=== PATIENT | male | born 1985 | race Caucasian/White ===

== ENCOUNTER 2020-01-23 15:41 | Emergency (ER) | payer SELFPAY ==
[~2020-01-23] VITALS: Ht 175.3 cm; Wt 56.7 kg
[2020-01-23] MEDS ORDERED: Prozac20 MG PO (16:28)
[2020-01-23] MEDS ORDERED: CYCL10 PO (16:28)
[2020-01-23 16:50] LABS: BASOPHILS ABSOLUTE AUTO 0.01 K/mm3 (0.00-0.23); BASOPHILS PERCENT AUTO 0 % (0-2); EOSINOPHILS ABSOLUTE AUTO 0.04 K/mm3 (0.00-0.68); EOSINOPHILS PERCENT AUTO 1 % (0-6); Hematocrit 44.8 % (37.0-53.0); Hemoglobin 14.4 g/dL (13.5-17.5); IMMATURE GRAN PERCENT AUTO 0 % (0-1); LYMPHOCYTES ABSOLUTE AUTO 1.54 K/mm3 (0.84-5.20); LYMPHOCYTES PERCENT AUTO 26 % (21-46); MONOCYTES ABSOLUTE AUTO 0.39 K/mm3 (0.16-1.47); MONOCYTES PERCENT AUTO 7 % (4-13); Mean Corpuscular HGB 29.8 pg (26.0-34.0); Mean Corpuscular HGB Conc 32.1 g/dL (31.5-36.5); Mean Corpuscular Volume 93 fL (80-100); Mean Platelet Volume 10.8 fL (9.1-12.4); NEUTROPHILS ABSOLUTE AUTO 3.97 K/mm3 (1.96-9.15); NEUTROPHILS PERCENT AUTO 67 % (41-73); Platelet Count 232 K/mm3 (150-400); RDW Coefficient Variation 12.3 % (11.7-14.2); Red Blood Cell Count 4.83 M/mm3 (4.30-5.90); White Blood Cell Count 5.95 K/mm3 (4.00-11.30)
[2020-01-23 17:24] LABS: Alanine Aminotransfer (ALT/SGP 26 U/L (12-78); Albumin, Blood 4.4 g/dL (3.4-5.0); Albumin/Globulin Ratio 1.2 (0.8-1.8); Alk Phos 63 U/L (50-136); Anion Gap 7 mmol/L (6-16); Aspartate Aminotrans (AST/SGOT 19 U/L (12-37); Bilirubin, Total 0.6 mg/dL (0.1-1.0); Blood Urea Nitrogen 15 mg/dL (8-24); Bun/Creatinine Ratio 18.4 (12.0-20.0); CO2, Blood 25 mmol/L (21-32); Calcium, Blood 9.7 mg/dL (8.5-10.1); Chloride, Blood 111 mmol/L (98-108); Creatinine, Blood 0.81 mg/dL (0.60-1.20); Globulin, Blood 3.6 g/dL (2.2-4.0); Glomerular Filtration Rate >60 (60-); Glucose, Blood 86 mg/dL (70-99); Potassium, Blood 4.1 mmol/L (3.5-5.5); Sodium, Blood 143 mmol/L (136-145); Troponin I <0.015 ng/mL (0.000-0.040)
[2020-01-23 19:42] LABS: Source, Urine Voided
[2020-01-23 19:51] LABS: Appearance, Urine Clear (Clear); Bilirubin, Urine Neg (Neg); Blood, Urine 1+ (Neg); Color, Urine Yellow (P-Yellow); Glucose Qualitative, Urine Neg (Neg); Ketones, Urine 4+ (Neg); Leukocyte Esterase, Urine Neg (Neg); Nitrite, Urine Neg (Neg); Protein, Urine Neg (Neg); Specific Gravity, Urine 1.015 (1.003-1.022); Urobilinogen, Urine NORM (Normal)
[2020-01-23 20:06] LABS: Bacteria Rare /hpf; Squamous Epithelial Cells Rare /hpf (Few); White Blood Cells, Urine 0-2 /hpf (0-5)
== END 2020-01-23 20:15 | disposition home or self-care (01) ==
LOC: ER 15:41
PROVIDERS: Emergency Medicine
DX: R42 Dizziness and giddiness (principal); R53.1 Weakness; R07.9 Chest pain, unspecified; R11.0 Nausea; R19.7 Diarrhea, unspecified; F41.9 Anxiety disorder, unspecified; F32.9 Major depressive disorder, single episode, unspecified; F41.0 Panic disorder [episodic paroxysmal anxiety]; Z79.899 Other long term (current) drug therapy
CPT/HCPCS: 71045; 80053; 81001; 83605; 83690; 84484; 85025; 85379; 93005; 93010; 96360; 96361; 99284-25; J7030

== ENCOUNTER 2020-03-02 12:30 | Emergency (ER) | payer BC ==
[~2020-03-02] VITALS: Ht 177.8 cm; Wt 56.7 kg
[~2020-03-02 12:30] MED LIST: CYCL10 PO; Prozac20 MG PO
[2020-03-02 16:24] LABS: BASOPHILS ABSOLUTE AUTO 0.03 K/mm3 (0.00-0.23); BASOPHILS PERCENT AUTO 1 % (0-2); EOSINOPHILS ABSOLUTE AUTO 0.16 K/mm3 (0.00-0.68); EOSINOPHILS PERCENT AUTO 3 % (0-6); Hematocrit 42.4 % (37.0-53.0); Hemoglobin 13.5 g/dL (13.5-17.5); IMMATURE GRAN ABSOLUTE AUTO 0.01 K/mm3 (0.00-0.10); IMMATURE GRAN PERCENT AUTO 0 % (0-1); LYMPHOCYTES ABSOLUTE AUTO 2.02 K/mm3 (0.84-5.20); LYMPHOCYTES PERCENT AUTO 42 % (21-46); MONOCYTES ABSOLUTE AUTO 0.46 K/mm3 (0.16-1.47); MONOCYTES PERCENT AUTO 10 % (4-13); Mean Corpuscular HGB 29.7 pg (26.0-34.0); Mean Corpuscular HGB Conc 31.8 g/dL (31.5-36.5); Mean Corpuscular Volume 93 fL (80-100); Mean Platelet Volume 10.6 fL (9.1-12.4); NEUTROPHILS PERCENT AUTO 44 % (41-73); Platelet Count 244 K/mm3 (150-400); RDW Coefficient Variation 12.6 % (11.7-14.2); RDW Standard Deviation 43.5 fL (35.1-46.3); Red Blood Cell Count 4.54 M/mm3 (4.30-5.90); White Blood Cell Count 4.78 K/mm3 (4.00-11.30)
[2020-03-02 16:49] LABS: Anion Gap 4 mmol/L (6-16); Blood Urea Nitrogen 13 mg/dL (8-24); Bun/Creatinine Ratio 15.5 (12.0-20.0); CO2, Blood 29 mmol/L (21-32); Chloride, Blood 109 mmol/L (98-108); Creatinine, Blood 0.84 mg/dL (0.60-1.20); Glomerular Filtration Rate >60 (60-); Glucose, Blood 87 mg/dL (70-99); Potassium, Blood 4.1 mmol/L (3.5-5.5); Sodium, Blood 142 mmol/L (136-145)
[2020-03-02] MEDS ORDERED: HYDHCL25 PO (18:21)
== END 2020-03-02 18:31 | disposition home or self-care (01) ==
LOC: ER 12:30
PROVIDERS: Emergency Medicine
DX: R42 Dizziness and giddiness (principal); H53.8 Other visual disturbances; F32.9 Major depressive disorder, single episode, unspecified; F41.9 Anxiety disorder, unspecified; F41.0 Panic disorder [episodic paroxysmal anxiety]; Z79.899 Other long term (current) drug therapy
CPT/HCPCS: 70450; 80048; 85025; 93005; 93010; 99284-25

== ENCOUNTER 2020-06-20 15:33 | Observation (INO) | payer BC ==
[~2020-06-20] VITALS: Ht 175.3 cm; Wt 58.2 kg
[~2020-06-20 15:33] MED LIST changes: -CYCL10 PO; +HYDHCL25 PO
[2020-06-20 16:05] LABS: BASOPHILS ABSOLUTE AUTO 0.02 K/mm3 (0.00-0.23); BASOPHILS PERCENT AUTO 0 % (0-2); EOSINOPHILS ABSOLUTE AUTO 0.18 K/mm3 (0.00-0.68); EOSINOPHILS PERCENT AUTO 4 % (0-6); Hematocrit 43.7 % (37.0-53.0); Hemoglobin 14.1 g/dL (13.5-17.5); IMMATURE GRAN ABSOLUTE AUTO 0.01 K/mm3 (0.00-0.10); IMMATURE GRAN PERCENT AUTO 0 % (0-1); LYMPHOCYTES ABSOLUTE AUTO 2.22 K/mm3 (0.84-5.20); LYMPHOCYTES PERCENT AUTO 45 % (21-46); MONOCYTES ABSOLUTE AUTO 0.44 K/mm3 (0.16-1.47); MONOCYTES PERCENT AUTO 9 % (4-13); Mean Corpuscular HGB 29.5 pg (26.0-34.0); Mean Corpuscular HGB Conc 32.3 g/dL (31.5-36.5); Mean Corpuscular Volume 91 fL (80-100); Mean Platelet Volume 10.9 fL (9.1-12.4); NEUTROPHILS ABSOLUTE AUTO 2.08 K/mm3 (1.96-9.15); NEUTROPHILS PERCENT AUTO 42 % (41-73); Platelet Count 207 K/mm3 (150-400); RDW Coefficient Variation 12.6 % (11.7-14.2); RDW Standard Deviation 42.3 fL (35.1-46.3); Red Blood Cell Count 4.78 M/mm3 (4.30-5.90); White Blood Cell Count 4.95 K/mm3 (4.00-11.30)
[2020-06-20 16:27] LABS: Alanine Aminotransfer (ALT/SGP 44 U/L (12-78); Albumin, Blood 4.4 g/dL (3.4-5.0); Albumin/Globulin Ratio 1.2 (0.8-1.8); Alk Phos 66 U/L (50-136); Anion Gap 3 mmol/L (6-16); Aspartate Aminotrans (AST/SGOT 25 U/L (12-37); Bilirubin, Total 0.5 mg/dL (0.1-1.0); Blood Urea Nitrogen 12 mg/dL (8-24); Bun/Creatinine Ratio 14.9 (12.0-20.0); CO2, Blood 30 mmol/L (21-32); Calcium, Blood 9.7 mg/dL (8.5-10.1); Chloride, Blood 108 mmol/L (98-108); Creatinine, Blood 0.81 mg/dL (0.60-1.20); Globulin, Blood 3.6 g/dL (2.2-4.0); Glomerular Filtration Rate >60 (60-); Glucose, Blood 83 mg/dL (70-99); Potassium, Blood 4.3 mmol/L (3.5-5.5); Sodium, Blood 141 mmol/L (136-145)
[2020-06-20] MEDS ORDERED: VENL37.5ER PO (17:24)
[2020-06-20] MEDS ORDERED: IMITREX100 MG PO (17:26)
[2020-06-20] MEDS ORDERED: HYDHCL25 PO (18:38)
[2020-06-20] MEDS ORDERED: CYCL10 PO (18:39)
[2020-06-20] MEDS ORDERED: PROMETHAZINE12.5 M1 PO (18:40)
[2020-06-20 19:14] LABS: Source, Urine Voided
[2020-06-20 19:17] LABS: Bilirubin, Urine Neg (Neg); Blood, Urine Neg (Neg); Glucose Qualitative, Urine Neg (Neg); Ketones, Urine Neg (Neg); Leukocyte Esterase, Urine Neg (Neg); Nitrite, Urine Neg (Neg); Protein, Urine Neg (Neg); Urobilinogen, Urine NORM (Normal); pH, Urine 6.5 (5.0-8.0)
[2020-06-20 19:18] LABS: Appearance, Urine Clear (Clear); Color, Urine Yellow (P-Yellow)
--- NOTE | 2020-06-21 05:19 | NUR ---
BODY AND FENDER MECHANIC SUMMARY NEW ADMIT FROM THE ED TONIGHT. PT AAOX4 AND PLEASANT. CAME IN WITH COMPLAINTS OF ABNORMAL MUSCLE TWITCHING, NEW WEAKNESS, AND DIFFICULTY FORMING SENTENCES WHILE SPEAKING. PT STATED THAT HE "FELT LIKE I REALLY HAD TO CONCENTRATE TO GET THE WORDS OUT THE WAY I WANTED TO SAY THEM". PT STATES SYMPTOMS HAVE MOSTLY RESOLVED BUT HE IS STILL HAVING TO CONCENTRATE ON SPEAKING MORE THAN USUAL. NEURO CHECKS NEGATIVE FOR ANY ACUTE FINDINGS, EQUAL STRENGTH IN ALL EXTREMETIES, DENIES N/T, AND PT ABLE TO SPEAK CLEARLY. VSS, WILL CONTINUE TO MONITOR.
[2020-06-21 05:22] LABS: Anion Gap 6 mmol/L (6-16); Blood Urea Nitrogen 11 mg/dL (8-24); Bun/Creatinine Ratio 13.1 (12.0-20.0); CO2, Blood 27 mmol/L (21-32); Calcium, Blood 8.4 mg/dL (8.5-10.1); Chloride, Blood 110 mmol/L (98-108); Creatinine, Blood 0.84 mg/dL (0.60-1.20); Glomerular Filtration Rate >60 (60-); Glucose, Blood 87 mg/dL (70-99); Potassium, Blood 3.7 mmol/L (3.5-5.5); Sodium, Blood 143 mmol/L (136-145)
[2020-06-21 06:13] LABS: U Amphetamine Screen Not Detected; U Barbituate Screen Not Detected; U Benzodiazapine Screen Not Detected; U Buprenorphine Screen Not Detected; U Cannabinoids Screen Not Detected; U Cocaine Screen Not Detected; U Methadone Screen Not Detected; U Methamphetamine Screen Not Detected; U Opiates Screen Not Detected; U Oxycodone Screen Not Detected; U Phencyclidine Screen Not Detected; U Propoxyphene Screen Not Detected
--- NOTE | 2020-06-21 13:25 | NUR ---
SUMMARY PT DISCHARGED TO HOME, PT VERBALIZED UNDERSTANDING OF DISCHARGE INSTRUCTIONS REGARDING MEDS AND FOLLOW UP, PT TAKEN OUT SAFELY VIA WHEELCHAIR
== END 2020-06-21 13:19 | disposition home or self-care (01) ==
LOC: ER 15:33 → ERHOLD 15:34 → ER 15:53 → MEDS 20:49
PROVIDERS: Emergency Medicine; Family Medicine; Physician Assistant; ADMIT Hospitalist
DX: G43.909 Migraine, unspecified, not intractable, without status migrainosus (principal); K58.9 Irritable bowel syndrome, unspecified; F32.9 Major depressive disorder, single episode, unspecified; R53.1 Weakness; Z88.1 Allergy status to other antibiotic agents
CPT/HCPCS: 36415; 70450; 80048; 80053; 81003; 84484; 85025; 93005; 93010; 96361; 96372; 96374; 96375; 99285-25; A9270; G0008; G0378; J1200; J1650; J2765; J7030; Q2038

== ENCOUNTER 2021-01-31 06:52 | Day surgery (SDC) | payer BC ==
[~2021-01-31] VITALS: Ht 175.3 cm; Wt 63.6 kg
[~2021-01-31 06:52] MED LIST changes: +CYCL10 PO; +IMITREX100 MG PO; +PROMETHAZINE12.5 M1 PO; +VENL37.5ER PO
[2021-01-31] MEDS ORDERED: OMEP20ER PO (08:10)
[2021-01-31] MEDS ORDERED: TRAZ50 PO (08:10)
--- NOTE | 2021-01-31 08:56 | NUR ---
01/31/21 0856 Emperatriz Flores 30 MG EPI USED TO SOAK PLEDGETS PER ORDER FOR NASAL PACKING.
== END 2021-01-31 10:57 | disposition home or self-care (01) ==
LOC: ORSCSDS 06:52
PROVIDERS: Otolaryngology
PROC: 09SL0ZZ Reposition Nasal Turbinate, Open Approach (ICD-10-PCS; principal; 2021-01-31 08:15)
PROC: 09BM0ZZ Excision of Nasal Septum, Open Approach (ICD-10-PCS; principal; 2021-01-31 08:15)
DX: J34.2 Deviated nasal septum (principal); J34.3 Hypertrophy of nasal turbinates; J45.909 Unspecified asthma, uncomplicated; Z79.899 Other long term (current) drug therapy
CPT/HCPCS: A9270; J0171; J1100; J2250; J2405; J2704; J3010; J7120

== ENCOUNTER 2022-12-17 11:44 | Emergency (ER) | payer BC ==
[~2022-12-17] VITALS: Ht 175.3 cm; Wt 63.5 kg
[~2022-12-17 11:44] MED LIST changes: +OMEP20ER PO; +TRAZ50 PO
[2022-12-17 12:25] LABS: BASOPHILS ABSOLUTE AUTO 0.03 K/mm3 (0.00-0.23); BASOPHILS PERCENT AUTO 1 % (0-2); EOSINOPHILS ABSOLUTE AUTO 0.05 K/mm3 (0.00-0.68); EOSINOPHILS PERCENT AUTO 1 % (0-6); Hematocrit 41.4 % (37.0-53.0); Hemoglobin 13.6 g/dL (13.5-17.5); IMMATURE GRAN ABSOLUTE AUTO 0.01 K/mm3 (0.00-0.10); IMMATURE GRAN PERCENT AUTO 0 % (0-1); LYMPHOCYTES ABSOLUTE AUTO 1.97 K/mm3 (0.84-5.20); LYMPHOCYTES PERCENT AUTO 38 % (21-46); MONOCYTES ABSOLUTE AUTO 0.53 K/mm3 (0.16-1.47); MONOCYTES PERCENT AUTO 10 % (4-13); Mean Corpuscular HGB 29.4 pg (26.0-34.0); Mean Corpuscular HGB Conc 32.9 g/dL (31.5-36.5); Mean Corpuscular Volume 90 fL (80-100); Mean Platelet Volume 11.1 fL (9.1-12.4); NEUTROPHILS PERCENT AUTO 50 % (41-73); Platelet Count 219 K/mm3 (150-400); RDW Coefficient Variation 12.9 % (11.7-14.2); RDW Standard Deviation 42.4 fL (35.1-46.3); Red Blood Cell Count 4.62 M/mm3 (4.30-5.90); White Blood Cell Count 5.19 K/mm3 (4.00-11.30)
[2022-12-17 12:59] LABS: Albumin, Blood 4.4 g/dL (3.4-5.0); Albumin/Globulin Ratio 1.4 (0.8-1.8); Bilirubin, Total 0.3 mg/dL (0.1-1.0); Bun/Creatinine Ratio 14.1 (12.0-20.0); Calcium, Blood 9.3 mg/dL (8.5-10.1); Creatinine, Blood 0.92 mg/dL (0.60-1.20); Globulin, Blood 3.2 g/dL (2.2-4.0); Potassium, Blood 4.4 mmol/L (3.5-5.5); Total Protein, Blood 7.6 g/dL (6.4-8.2)
[2022-12-17] MEDS ORDERED: METO25ER PO (14:20)
[2022-12-17] MEDS ORDERED: ATOM40 PO (14:20)
[2022-12-17] MEDS ORDERED: CITALOPRAM HBR10 MG PO (14:20)
[2022-12-17 15:45] VITALS: BP 134/83
== END 2022-12-17 15:53 | disposition home or self-care (01) ==
LOC: ER 11:44
PROVIDERS: Student in an Organized Health Care Education/Training Program
DX: M94.0 Chondrocostal junction syndrome [Tietze] (principal); I45.6 Pre-excitation syndrome; Z88.1 Allergy status to other antibiotic agents; Z79.899 Other long term (current) drug therapy
CPT/HCPCS: 71046; 80053; 84484; 85025; 93005; 93010; 93246; 99284-25

== ENCOUNTER → 2023-03-03 | Outpatient (CLI) | payer BC ==
[~2023-03-03] MED LIST changes: +ATOM40 PO; +CITALOPRAM HBR10 MG PO; +METO25ER PO
== END ==
LOC: LAB 05:30 → LAB SHORT 05:30 → LAB FUT 03-03 12:20
DX: K21.9 Gastro-esophageal reflux disease without esophagitis (principal)
CPT/HCPCS: 87338

== ENCOUNTER 2023-10-03 06:09 | Observation (INO) | payer BC ==
[2023-10-03] VITALS (16 sets, daily range): BP systolic 111–155; BP diastolic 75–100
[~2023-10-03] VITALS: Ht 175.3 cm; Wt 67.1 kg
[~2023-10-03 06:09] MED LIST changes: +FERSU300 PO; +IRON18 MG; +MIRT15 PO; +VIT D2-K1 20-1259 ML; +VITAMIN D310 MC4 PO
[2023-10-03] MEDS ORDERED: Lactated Ringer's 1,000 ML IV SCH ×2 (06:20→09:35)
[2023-10-03] MEDS ORDERED: PREG25 PO (06:27)
--- NOTE | 2023-10-03 06:51 | NUR ---
History, Chart, Medications and Allergies reviewed before start of procedure. Lungs clear T/O to Auscultation. Patient confirms NPO status and agrees with scheduled surgery. Pre-Op teaching done. Pt verbalizes understanding. Patient reports completing Chlorhexadine shower X2 prior to admission to hospital.
[2023-10-03] MEDS ORDERED: Bupivacaine 0.5% HCl 5 MG/ML 30MLVIAL ONE (07:14)
[2023-10-03] MEDS ORDERED: FentaNYL Citrate 50 MCG/ML 2 ML Injection ONE ×3 (07:15→09:52)
[2023-10-03] MEDS ORDERED: propofoL 20 ML IV ONE (07:15)
[2023-10-03] MEDS ORDERED: Midazolam HCl 1MG / ML 2ML Vial IV ONE (07:25)
[2023-10-03] MEDS ORDERED: Ondansetron HCl 2 MG / ML 2ML Vial ONE (07:43)
[2023-10-03] MEDS ORDERED: Dexamethasone Sod Phos 10 MG/ML 1ML VIAL ONE (07:43)
[2023-10-03] MEDS ORDERED: Lidocaine HCl 2% 20 ML MDV ONE (07:43)
[2023-10-03] MEDS ORDERED: Phenylephrine HCl 100 MCG/ML-NS 10MLSYR (1MG/10ML) ONE (09:11)
[2023-10-03] MEDS ORDERED: Phenylephrine HCl 10mg/ml 1 ml Vial ONE (09:11)
[2023-10-03] MEDS ORDERED: Sugammadex Sodium 200 MG/2ML SDV (100 MG/ML) ONE (09:12)
[2023-10-03] MEDS ORDERED: Ketorolac Tromethamine 30mg Vial ONE (09:13)
[2023-10-03] MEDS ORDERED: Cyclobenzaprine HCl 10 MG Tab PO PRN (09:30)
[2023-10-03] MEDS ORDERED: Ondansetron HCl 2 MG / ML 2ML Vial IV PRN (09:35)
[2023-10-03] MEDS ORDERED: Acetaminophen 325 MG TABLET PO PRN (09:35)
[2023-10-03] MEDS ORDERED: HYDROmorphone HCl/Pf 1MG SYR IV PRN (09:35)
[2023-10-03] MEDS ORDERED: OxyCODONE HCL 5 MG TAB PO PRN (09:35)
[2023-10-03] MEDS ORDERED: Ketorolac Tromethamine 15mg Vial IV PRN (09:40)
[2023-10-03] MEDS ORDERED: Rocuronium Bromide 10 MG/ML 5ML Injection IV ONE (10:14)
--- NOTE | 2023-10-03 10:20 | NUR ---
REPORT GIVEN TO ORD.RMA AT 1000.
[2023-10-03] MEDS ORDERED: Prochlorperazine Edisylate 10 mg Vial IV PRN (10:55)
[2023-10-03] MEDS ORDERED: Simethicone 80 MG Chew PO PRN (13:40)
--- NOTE | 2023-10-03 16:17 | NUR ---
SHIFT SUMMARY PT POD #0 FOR ROBOTIC LAP HERNIA REPAIR WITH FUNDOPLICATION. 4 LAP SITES TO ABD, CDI. PT IS ON A CLEAR LIQUID DIET BUT CANNOT HAVE JELLO. PT REPORTS MOSTLY GAS PAIN IN HIS SHOULDERS AND IS PASSING SMALL AMOUNTS OF GAS. PT HAS URINATED AND HAS AMBULATED IN THE HALLS. VSS.
[2023-10-03] MEDS ORDERED: Sennosides 8.6 MG Tab PO SCH (21:00)
[2023-10-03] MEDS ORDERED: Mirtazapine 15 MG Tab PO SCH (21:00)
[2023-10-04 04:42] VITALS: BP 114/77
--- NOTE | 2023-10-04 05:05 | NUR ---
SHIFT SUMMARY POD1 HIATAL HERNIA REPAIR. X4 INCISIONS REMAIN C/D/I. VSS. PT SLEPT OKAY T/O THE NIGHT. MEDICATED FOR PAIN TWICE PER EMAR. THIS AM PT REPORTS R SHOUDLER PAIN, BUT ALSO ENDORSES PASSING FLATTUS. PT AMBULATING TO THE BATHROOM W/ SBA OR INDEP DEPENDING ON PAIN LEVEL. TOLLERATING CLEAR PO INTAKE W/O N/V. OVERALL NO ACUTE EVENTS NOTED, PLAN TO ADVANCE DIET TO DAY AND D/C IF CLEARED BY SURGERY. THE PATIENT IS CURRENTLY RESTING, IN NO DISTRESS, CALL LIGHT IN REACH
[2023-10-04 05:07] LABS: Hematocrit 39.4 % (37.0-53.0); Hemoglobin 12.5 g/dL (13.5-17.5); Mean Corpuscular HGB 28.9 pg (26.0-34.0); Mean Corpuscular HGB Conc 31.7 g/dL (31.5-36.5); Mean Corpuscular Volume 91 fL (80-100); Mean Platelet Volume 11.1 fL (9.1-12.4); Platelet Count 209 K/mm3 (150-400); RDW Coefficient Variation 13.4 % (11.7-14.2); RDW Standard Deviation 45.1 fL (35.1-46.3); Red Blood Cell Count 4.32 M/mm3 (4.30-5.90); White Blood Cell Count 10.39 K/mm3 (4.00-11.30)
[2023-10-04 07:51] VITALS: BP 119/77
[2023-10-04] MEDS ORDERED: Enoxaparin 40 MG/0.4 ML SYR SC SCH (09:00)
[2023-10-04] MEDS ORDERED: Citalopram Hydrobromide 10 MG TAB PO SCH (09:00)
[2023-10-04] MEDS ORDERED: ATOMOXETINE HCL 10 MG PO SCH (09:00)
[2023-10-04] MEDS ORDERED: Metoprolol Succinate 25 MG TABCR PO SCH (09:00)
[2023-10-04] MEDS ORDERED: OXAYDO5 M1 PO (10:27)
[2023-10-04] MEDS ORDERED: Acetaminophen650 M1 PO (10:32)
--- NOTE | 2023-10-04 14:56 | NUR ---
DISCHARGE SUMMARY POD1 TOUPET FUNDOPLICATION, A/OX4, VSS, TOLERATING PO CLEARS AND ADVANCED TO FULL LIQUID AND HE WAS ABLE TO TOLERATE BREAKFAST AND LUNCH WITH NO ISSUES OR COMPLAINTS. 4 LAP SITES ALIGNED TRANSVERSLY MIDABDOMEN ALL C/D/I WITH SURGICAL GLUE IN PLACE. HE IS ABLE TO GET OOB INDEPENDENTLY AND AMBULATE TO THE BATHROOM, ADLS INDEPENDENTLY WELL, LS CLEAR BILATERALLY, EVEN HR AND DENIES SOB/CP THIS AM. DISCHARGE INSTRUCTIONS DISCUSSED WITH HIM INCLUDING HOME CARE, MEDICATIONS AND FOLLOW UP APPOINTMENTS. NO QUESTIONS AT THIS TIME. PIV REMOVED BY SECOND RN AND ESCORTED OUT TO PRIVATE AUTO TO GO HOME.
== END 2023-10-04 14:55 | disposition home or self-care (01) ==
LOC: ORSCMMR 06:09 → ORD 07:30 → SURS 09:30 → ORSCMMR 09:30 → SURS 10:08
PROVIDERS: ADMIT Surgery
PROC: 0BQT3ZZ Repair Diaphragm, Percutaneous Approach (ICD-10-PCS; principal; 2023-10-03 07:30)
DX: K44.9 Diaphragmatic hernia without obstruction or gangrene (principal); K21.9 Gastro-esophageal reflux disease without esophagitis; Z88.1 Allergy status to other antibiotic agents; Z79.899 Other long term (current) drug therapy
CPT/HCPCS: 36415; 83735; 85027; 94762; A9270; J1100; J1650; J1885; J2250; J2371; J2405; J2704; J3010; J7120

== ENCOUNTER 2023-10-21 13:17 | Emergency (ER) | payer BC ==
[~2023-10-21] VITALS: Ht 175.3 cm; Wt 63.5 kg
[~2023-10-21 13:17] MED LIST changes: +Acetaminophen650 M1 PO; +OXAYDO5 M1 PO; +PREG25 PO
[2023-10-21] MEDS ORDERED: NS 1,000 ML IV SCH (13:45)
[2023-10-21] MEDS ORDERED: Ondansetron HCl 2 MG / ML 2ML Vial IV ONE (13:45)
[2023-10-21 13:57] LABS: BASOPHILS ABSOLUTE AUTO 0.03 K/mm3 (0.00-0.23); BASOPHILS PERCENT AUTO 1 % (0-2); EOSINOPHILS ABSOLUTE AUTO 0.05 K/mm3 (0.00-0.68); EOSINOPHILS PERCENT AUTO 1 % (0-6); Hematocrit 42.1 % (37.0-53.0); Hemoglobin 14.2 g/dL (13.5-17.5); IMMATURE GRAN ABSOLUTE AUTO 0.01 K/mm3 (0.00-0.10); IMMATURE GRAN PERCENT AUTO 0 % (0-1); LYMPHOCYTES ABSOLUTE AUTO 1.66 K/mm3 (0.84-5.20); LYMPHOCYTES PERCENT AUTO 41 % (21-46); MONOCYTES ABSOLUTE AUTO 0.35 K/mm3 (0.16-1.47); MONOCYTES PERCENT AUTO 9 % (4-13); Mean Corpuscular HGB 29.3 pg (26.0-34.0); Mean Corpuscular HGB Conc 33.7 g/dL (31.5-36.5); Mean Corpuscular Volume 87 fL (80-100); Mean Platelet Volume 11.2 fL (9.1-12.4); NEUTROPHILS ABSOLUTE AUTO 1.93 K/mm3 (1.96-9.15); NEUTROPHILS PERCENT AUTO 48 % (41-73); Platelet Count 318 K/mm3 (150-400); RDW Coefficient Variation 13.1 % (11.7-14.2); RDW Standard Deviation 41.8 fL (35.1-46.3); Red Blood Cell Count 4.84 M/mm3 (4.30-5.90); White Blood Cell Count 4.03 K/mm3 (4.00-11.30)
[2023-10-21 14:25] LABS: Albumin, Blood 4.8 g/dL (3.4-5.0); Albumin/Globulin Ratio 1.3 (0.8-1.8); Bilirubin, Total 0.5 mg/dL (0.1-1.0); Bun/Creatinine Ratio 12.6 (12.0-20.0); Calcium, Blood 9.8 mg/dL (8.5-10.1); Creatinine, Blood 1.11 mg/dL (0.60-1.20); Globulin, Blood 3.7 g/dL (2.2-4.0); Potassium, Blood 4.3 mmol/L (3.5-5.5); Total Protein, Blood 8.5 g/dL (6.4-8.2)
[2023-10-21 16:00] VITALS: BP 117/83
== END 2023-10-21 16:30 | disposition home or self-care (01) ==
LOC: ER 13:17
PROVIDERS: Physician Assistant
DX: R11.0 Nausea (principal); R42 Dizziness and giddiness; G43.909 Migraine, unspecified, not intractable, without status migrainosus; Z79.899 Other long term (current) drug therapy; Z88.1 Allergy status to other antibiotic agents
CPT/HCPCS: 71046; 80053; 83690; 85025; 93005; 93010; 96374; 99284-25; J2405; J7030